=== PATIENT | female | born 1985 ===

== ENCOUNTER 2017-01-06 09:51 | Observation (INO) | payer MEDICAID, OTHER ==
[2017-01-06 12:49] VITALS: BP 101/72; PULSE 99; TEMP 97; O2SAT 100; BMI 30.8
--- NOTE | 2017-01-06 13:14 | RAD ---
HISTORY: Medical clearance COMPARISON: Images from chest PA and lateral x-ray performed 11/03/11 TECHNIQUE: Chest, one view. FINDINGS: Examination limited by habitus. LUNGS: No focal consolidation. Please note that chest x-ray has limited sensitivity for the detection of pulmonary masses. PLEURA: No significant pleural effusion identified. No definite pneumothorax . CARDIOVASCULAR: The cardiomediastinal silhouette appears within normal limits of size. OSSEOUS STRUCTURES: No acute osseous abnormality identified. VISUALIZED UPPER ABDOMEN: Unremarkable. OTHER FINDINGS: None. IMPRESSION: No focal consolidation, significant pleural effusion, or definite pneumothorax identified.
[2017-01-06 13:20] LABS: BASO % 0.5 % (0.0-2.0); EOS # 0.1 K/uL (0.0-0.7); HEMOGLOBIN 13.6 g/dL (12.0-16.0); LYMPH # 1.4 K/uL (1.0-4.3); LYMPH % 24.2 % (20.0-40.0); MEAN CELL VOLUME 94.6 fl (81.0-99.0); MEAN CORPUSCULAR HEMOGLOBIN 31.8 pg (27.0-31.0); MEAN CORPUSCULAR HGB CONC 33.6 g/dL (33.0-37.0); MEAN PLATELET VOLUME 7.7 fl (7.2-11.7); MONO # 0.4 K/uL (0.0-0.8); MONO % 6.9 % (0.0-10.0); NEUT % 67.4 % (50.0-75.0); NRBC % 0.1 % (0.0-0.0); RBC 4.27 Mil/uL (3.80-5.20); RED CELL DISTRIBUTION WIDTH 13.2 % (11.5-14.5); WHITE BLOOD COUNT 5.9 K/uL (4.8-10.8)
[2017-01-06 13:51] LABS: ALB/GLOB RATIO 1.1 (1.0-2.1); ALBUMIN 4.1 g/dL (3.5-5.0); ALT/SGPT 30 U/L (9-52); AST/SGOT 22 U/L (14-36); BLOOD UREA NITROGEN 12 mg/dl (7-17); CALCIUM 9.5 mg/dL (8.4-10.2); GFR AFRICAN-AMERICAN > 60; GFR NON-AFRICAN AMERICAN > 60
--- NOTE | 2017-01-06 14:18 | ED PDOC ---
HPI: Psych/Substance Abuse Time Seen by Provider: 01/06/17 10:04 Chief Complaint (Nursing): Psychiatric Evaluation Chief Complaint (Provider): Psych evaluation History Per: Patient, EMS History/Exam Limitations: no limitations Additional Complaint(s): The patient is a 31yo female, PMHx of self harm, anxiety, bipolar disorder, depression, is brought to the ED for evaluation status post a "manic episode" and reported by EMS. Patient denies any medical complaints. Past Medical History Vital Signs: Last Vital Signs Temp 97 F L 01/06/17 09:54 Pulse 99 H 01/06/17 09:54 Resp BP 101/72 01/06/17 09:54 Pulse Ox 100 01/06/17 09:54 - Medical History PMH: Anxiety, Bipolar Disorder, Depression Denies: Diabetes, Hepatitis, HIV, HTN, Chronic Kidney Disease, Seizures, Sexually Transmitted Disease - Family History Family History: States: Unknown Family Hx - Immunization History Hx Tetanus Toxoid Vaccination: No Hx Influenza Vaccination: No Hx Pneumococcal Vaccination: No - Home Medications Home Medications: Ambulatory Orders Medication Instructions Recorded Unobtainable 01/06/17 - Allergies Allergies/Adverse Reactions: Allergies Allergy/AdvReac Type Severity Reaction Status Date / Time pineapple Allergy ITCHING Verified 01/06/17 12:42 Review of Systems ROS Statement: Except As Marked, All Systems Reviewed And Found Negative Psych: Positive for: Other ("manic episode") Physical Exam - Reviewed Nursing Documentation Reviewed: Yes Vital Signs Reviewed: Yes - Physical Exam Appears: Positive for: Well, Non-toxic, No Acute Distress Head Exam: Positive for: ATRAUMATIC, NORMAL INSPECTION, NORMOCEPHALIC Skin: Positive for: Normal Color, Warm, DRY Eye Exam: Positive for: EOMI, Normal appearance, PERRL Neck: Positive for: Normal, Supple Cardiovascular/Chest: Positive for: Regular Rate, Rhythm Respiratory: Positive for: Normal Breath Sounds. Negative for: Respiratory Distress Neurologic/Psych: Positive for: Alert, Oriented - Laboratory Results Result Diagrams: 01/06/17 13:10 01/06/17 13:10 - ECG Interpretation Of ECG: NSR @ 62, no ST-T changes. O2 Sat by Pulse Oximetry: 100 (RA) Pulse Ox Interpretation: Normal - Radiology X-Ray: Read By Radiologist (No focal consolidation, significant pleural effusion , or definite pneumothorax identified.) Medical Decision Making Medical Decision Making: Time: 1200 Impression: Psychiatric evaluation Plan: -- Physical exam -- Crisis evaluation -- ED Observation Reassess Time: 1632 --Patient is medically cleared. --Awaiting [facility] [place]. Patient placed in OBS until screening is available. Scribe Attestation: Documented by Iza Rivera acting as a scribe for Delia Strickland MD. Provider Attestation: All medical record entries made by the Scribe were at my direction and personally dictated by me. I have reviewed the chart and agree that the record accurately reflects my personal performance of the history, physical exam, medical decision making, and the department course for this patient. I have also personally directed, reviewed, and agree with the discharge instructions and disposition. ED OBSERVATION Date of observation admission: 01/06/17 Time of observation admission: 12:00 - Progress Note Progress Note: 01/06/17 14:18 Patient in room, stable vitals. Disposition - Clinical Impression Clinical Impression: Bipolar disorder - Patient ED Disposition Is Patient to be Admitted: Transfer of Care - Disposition Disposition Time: 19:00 Condition: STABLE Patient Signed Over To: Krishna Sullivan Handoff Comments: Pending [facility] screening.
[2017-01-06 15:47] LABS: SQUAMOUS EPITHIAL 8 /hpf (0-5); URINE BACTERIA RARE (<OCC); URINE BILIRUBIN NEGATIVE (NEGATIVE); URINE BLOOD NEGATIVE (NEGATIVE); URINE CLARITY SLIGHTY-CLOUDY (Clear); URINE COLOR YELLOW (YELLOW); URINE GLUCOSE (UA) NEG (Normal); URINE LEUKOCYTE ESTERASE TRACE Leu/uL (Negative); URINE NITRATE NEGATIVE (NEGATIVE); URINE PROTEIN NEGATIVE (NEGATIVE); URINE UROBILINOGEN 0.2-1.0 mg/dL (0.2-1.0)
[2017-01-06 15:56] LABS: BARBITURATES, UR NEGATIVE (NEGATIVE); BENZODIAZEPINES, UR NEGATIVE (NEGATIVE); OPIATES, UR NEGATIVE (NEGATIVE)
[2017-01-06 16:16] LABS: PHENCYCLIDINE, UR POSITIVE (NEGATIVE)
--- NOTE | 2017-01-06 19:26 | ED PDOC ---
- Laboratory Results Result Diagrams: 01/06/17 13:10 01/06/17 13:10 - ECG O2 Sat by Pulse Oximetry: 100 (RA) Pulse Ox Interpretation: Normal Medical Decision Making Medical Decision Making: Time: 19:00 --Patient was signed out to provider by Dr. Delia Strickland. Pending [facility] screening. Time: 21:30 --Vitals are stable and patient is resting comfortably. Time: 22:25 Upon [facility] screener evaluation, patient is found medically stable to be discharged home and requires no further treatment in the ED at this time. Counseling was provided and all questions were answered regarding diagnosis. There is agreement to discharge plan. Return if symptoms persist or worsen. Clinical Impression: Bipolar disorder Scribe Attestation: Documented by Pati Delong, acting as a scribe for Krishna Sullivan MD. Provider Scribe Attestation: All medical record entries made by the Scribe were at my direction and personally dictated by me. I have reviewed the chart and agree that the record accurately reflects my personal performance of the history, physical exam, medical decision making, and the department course for this patient. I have also personally directed, reviewed, and agree with the discharge instructions and disposition. Disposition Doctor Will See Patient In The: Office Counseled Patient/Family Regarding: Diagnosis - Clinical Impression Clinical Impression: Bipolar disorder - POA Present On Arrival: None - Disposition Disposition: Routine/Home Disposition Time: 22:25 Condition: STABLE
--- NOTE | 2017-01-07 08:45 | CARD ---
APPROVED REPORT EKG Measurement Heart [id number] <Conclusion> Normal sinus rhythm Normal ECG
== END 2017-01-06 22:39 | disposition home or self-care (01) ==
LOC: H.ER 09:51 → H.EROBSV 13:25
PROVIDERS: ADMIT Emergency Medicine; ATTEND Emergency Medicine
DX: F31.9 Bipolar disorder, unspecified (principal)

== ENCOUNTER 2017-04-25 15:55 | Emergency (ER) | payer MEDICAID, OTHER ==
[2017-04-25 15:55] VITALS: BMI 30.8
[2017-04-25 16:03] VITALS: BP 144/96; PULSE 90; RESP 20; TEMP 98.6; O2SAT 98
[2017-04-25] MEDS ORDERED: Lidocaine 1% Inj (20ml) IJ ONE (16:22)
--- NOTE | 2017-04-25 16:29 | ED PDOC ---
HPI: General Adult Time Seen by Provider: 04/25/17 16:05 Chief Complaint (Nursing): Abnormal Skin Integrity History Per: Patient Additional Complaint(s): Pt. states for the past week she's had pain and swelling to the back of the L head. Pt. was seen by Dr. Thomas 2 days ago and started on Augmentin without any relief. She was seen by Dr. Thomas again today and was instructed to come to ED for I&D of abscess. Denies fever, head injury, N/V, hx of DM. Past Medical History Reviewed: Historical Data, Nursing Documentation, Vital Signs Vital Signs: Last Vital Signs Temp 98.6 F 04/25/17 16:00 Pulse 90 04/25/17 16:00 Resp 20 04/25/17 16:00 BP 144/96 H 04/25/17 16:00 Pulse Ox 98 04/25/17 16:30 - Medical History PMH: Anxiety, Bipolar Disorder, Depression Denies: Diabetes, Hepatitis, HIV, HTN, Chronic Kidney Disease, Seizures, Sexually Transmitted Disease - Family History Family History: States: No Known Family Hx - Immunization History Hx Tetanus Toxoid Vaccination: No Hx Influenza Vaccination: No Hx Pneumococcal Vaccination: No - Home Medications Home Medications: Ambulatory Orders Medication Instructions Recorded Cephalexin [cephalexin] 500 mg PO Q6 #28 cap 04/25/17 Sulfamethoxazole/Trimethoprim 2 tab PO BID #28 tab 04/25/17 [Bactrim DS 800 mg-160 mg] - Allergies Allergies/Adverse Reactions: Allergies Allergy/AdvReac Type Severity Reaction Status Date / Time pineapple Allergy ITCHING Verified 01/06/17 12:42 Review of Systems ROS Statement: Except As Marked, All Systems Reviewed And Found Negative Physical Exam - Physical Exam Appears: Positive for: Well, Non-toxic, No Acute Distress Head Exam: Positive for: ATRAUMATIC. Negative for: NORMAL INSPECTION (nickel sized erythematous, fluctuance, erythematous mass on L occipital scalp without surrounding erythema), NORMOCEPHALIC Neurologic/Psych: Positive for: Alert, Oriented. Negative for: Aphasia, Facial Droop - ECG O2 Sat by Pulse Oximetry: 98 - Progress ED Course And Treament: Case d/w Dr. Thomas who agrees with care and requests that pt. return to ED for wound check/packing removal. Procedures - Time-Out Type of Procedure: Incision and drainage of abscess Site of Procedure: L occipital scalp Correct Patient (with visual ID + MR# on ID Band): Yes Correct Procedure: Yes PA/Tech: Ousmane - Incision and Drainage Blade Size: 11 I & D Procedure: betadine prep, sterile drapes applied, sterile dressing applied , gauze wick placed Disposition - Clinical Impression Clinical Impression: Abscess - Patient ED Disposition Is Patient to be Admitted: No - Disposition Referrals: [facility]ana Dawkins [Outside] Disposition: Routine/Home Disposition Time: 17:06 Condition: STABLE Additional Instructions: Return to ED in 48 hours for wound check/packing removal. STOP taking Augmentin. Start Keflex and Bactrim DS today . Prescriptions: Cephalexin [cephalexin] 500 mg PO Q6 #28 cap Sulfamethoxazole/Trimethoprim [Bactrim DS 800 mg-160 mg] 2 tab PO BID #28 tab Instructions: Abscess (ED) Forms: [employer] (Citizen Of [place])
[2017-04-25] MEDS ORDERED: Lidocaine 1% Inj (20ml) ONE (16:35)
[2017-04-25] MEDS ORDERED: Povidone Iodine Oint 10% Foilpak UD ONE (16:36)
== END 2017-04-25 17:15 | disposition home or self-care (01) ==
LOC: H.ER 15:55
DX: L02.811 Cutaneous abscess of head [any part, except face] (principal); F31.9 Bipolar disorder, unspecified; F41.9 Anxiety disorder, unspecified

== ENCOUNTER 2017-04-28 12:46 | Emergency (ER) | payer MEDICAID, OTHER ==
[2017-04-28 12:46] VITALS: BMI 30.8
[2017-04-28 12:54] VITALS: BP 145/95; PULSE 85; RESP 16; TEMP 98; O2SAT 100
--- NOTE | 2017-04-28 13:46 | ED PDOC ---
HPI: Wound Care - HPI Time Seen by Provider: 04/28/17 13:33 Chief Complaint (Nursing): Wound Check Chief Complaint (Provider): Lower left scalp abscess History Per: Patient Exam Limitations: no limitations Onset/Duration Of Symptoms: Days (x4) Current Symptoms Are (Timing): Still Present Additional History Per: Patient Additional Complaint(s): Adrienne Velasco is a 32 year old female with no past medical history who presents to the ED due to an abscess on her left scalp present 4x days. Patient has been on antibiotics for 4 days by pmd. Seen in the ED 2 days ago and received an incision and drainage. Tetanus is up to date. PMD: Bal Thomas MD Past Medical History Reviewed: Historical Data, Nursing Documentation, Vital Signs Vital Signs: Last Vital Signs Temp 98.0 F 04/28/17 12:53 Pulse 85 04/28/17 12:53 Resp 16 04/28/17 12:53 BP 145/95 H 04/28/17 12:53 Pulse Ox 100 04/28/17 12:53 - Medical History PMH: Anxiety, Bipolar Disorder, Depression Denies: Diabetes, Hepatitis, HIV, HTN, Chronic Kidney Disease, Seizures, Sexually Transmitted Disease - Family History Family History: States: Unknown Family Hx - Social History Current smoker - smoking cessation education provided: Yes (>10 cigarettes per day) Alcohol: None Drugs: Other (PCP) - Immunization History Hx Tetanus Toxoid Vaccination: No Hx Influenza Vaccination: No Hx Pneumococcal Vaccination: No - Home Medications Home Medications: Ambulatory Orders Medication Instructions Recorded Cephalexin [cephalexin] 500 mg PO Q6 #28 cap 04/25/17 Sulfamethoxazole/Trimethoprim 2 tab PO BID #28 tab 04/25/17 [Bactrim DS 800 mg-160 mg] - Allergies Allergies/Adverse Reactions: Allergies Allergy/AdvReac Type Severity Reaction Status Date / Time pineapple Allergy ITCHING Verified 04/28/17 12:50 Review of Systems ROS Statement: Except As Marked, All Systems Reviewed And Found Negative Skin: Positive for: Lesions (Left scalp abscess) Physical Exam - Reviewed Nursing Documentation Reviewed: Yes Vital Signs Reviewed: Yes - Physical Exam Appears: Positive for: Well, Non-toxic, No Acute Distress Head Exam: Positive for: ATRAUMATIC, NORMAL INSPECTION, NORMOCEPHALIC Skin: Positive for: Normal Color (Packed wound noted on lower left posterior scalp behind ear. No signs of erythema.), Warm, Dry Eye Exam: Positive for: EOMI, Normal appearance, PERRL Neck: Positive for: Normal, Painless ROM, Supple Cardiovascular/Chest: Positive for: Regular Rate, Rhythm. Negative for: Murmur Respiratory: Positive for: Normal Breath Sounds. Negative for: Respiratory Distress Gastrointestinal/Abdominal: Positive for: Normal Exam, Bowel Sounds, Soft. Negative for: Tenderness Back: Positive for: Normal Inspection. Negative for: L CVA Tenderness, R CVA Tenderness, Vertebral Tenderness Extremity: Positive for: Normal ROM. Negative for: Pedal Edema, Deformity Neurologic/Psych: Positive for: Alert, Oriented. Negative for: Motor/Sensory Deficits - ECG O2 Sat by Pulse Oximetry: 100 (RA) Pulse Ox Interpretation: Normal Medical Decision Making Medical Decision Making: Time: 13:33 Initial Impression: Lower left posterior scalp abscess behind ear Plan: --Consent obtained prior to procedure. Wound packing removed and wound dressed. --Reevaluation Time: 13:51 --Upon provider evaluation patient is medically stable, and requires no further treatment in the ED at this time. Counseling was provided and all questions were answered regarding diagnosis and need for followup with PMD. There is agreement to discharge plan. Return if symptoms persist or worsen. Scribe Attestation: Documented by Alvarado Rush, acting as a scribe for Adrienne Carter PA-C Provider Scribe Attestation: All medical record entries made by the Scribe were at my direction and personally dictated by me. I have reviewed the chart and agree that the record accurately reflects my personal performance of the history, physical exam, medical decision making, and the department course for this patient. I have also personally directed, reviewed, and agree with the discharge instructions and disposition. Disposition - Clinical Impression Clinical Impression: Encounter for wound re-check - Patient ED Disposition Is Patient to be Admitted: No - Disposition Disposition: Routine/Home Disposition Time: 13:51 Condition: FAIR Instructions: Abscess Follow-up (ED) Forms: [employer] ([place]), [facility] School/Work Excuse
== END 2017-04-28 14:03 | disposition home or self-care (01) ==
LOC: H.ER 12:46
DX: Z48.00 Encounter for change or removal of nonsurgical wound dressing (principal); F41.9 Anxiety disorder, unspecified; F31.9 Bipolar disorder, unspecified

== ENCOUNTER 2017-05-01 08:01 | Emergency (ER) | payer MEDICAID, OTHER ==
[2017-05-01 08:01] VITALS: BMI 30.8
[2017-05-01 08:09] VITALS: BP 134/85; TEMP 96.6
[2017-05-01 08:34] VITALS: PULSE 90; RESP 18; O2SAT 98
--- NOTE | 2017-05-01 08:53 | ED PDOC ---
HPI: General Adult Time Seen by Provider: 05/01/17 08:26 Chief Complaint (Nursing): Abnormal Skin Integrity Chief Complaint (Provider): Abnormal skin integrity History Per: Patient History/Exam Limitations: no limitations Onset/Duration Of Symptoms: Days (x2) Recently: Treated By A Physician Additional Complaint(s): Adrienne Velasco is a 32 year old female, with a past medical history of anxiety and depression, who presents to the emergency department for wound check s/p I& D of abscess on scalp onset 2 days ago. Patient denies any fever, or chills. No further medical complaints. PMD: None provided. Past Medical History Reviewed: Historical Data, Nursing Documentation, Vital Signs Vital Signs: Last Vital Signs Temp 96.6 F L 05/01/17 08:32 Pulse 90 05/01/17 08:32 Resp 18 05/01/17 08:32 BP 134/85 05/01/17 08:08 Pulse Ox 98 05/01/17 09:00 - Medical History PMH: Anxiety, Bipolar Disorder, Depression Denies: Diabetes, Hepatitis, HIV, HTN, Chronic Kidney Disease, Seizures, Sexually Transmitted Disease - Family History Family History: States: Unknown Family Hx - Social History Current smoker - smoking cessation education provided: Yes (Heavy smoker >10 cigarettes daily. 10 years smoking) Alcohol: None Drugs: Other (PCP) - Immunization History Hx Tetanus Toxoid Vaccination: No Hx Influenza Vaccination: No Hx Pneumococcal Vaccination: No - Home Medications Home Medications: Ambulatory Orders Medication Instructions Recorded Cephalexin [cephalexin] 500 mg PO Q6 #28 cap 04/25/17 Sulfamethoxazole/Trimethoprim 2 tab PO BID #28 tab 04/25/17 [Bactrim DS 800 mg-160 mg] - Allergies Allergies/Adverse Reactions: Allergies Allergy/AdvReac Type Severity Reaction Status Date / Time pineapple Allergy ITCHING Verified 04/28/17 12:50 Review of Systems ROS Statement: Except As Marked, All Systems Reviewed And Found Negative Constitutional: Negative for: Fever, Chills Skin: Positive for: Other (abscess wound on scalp) Physical Exam - Reviewed Nursing Documentation Reviewed: Yes Vital Signs Reviewed: Yes - Physical Exam Appears: Positive for: Well, Non-toxic, No Acute Distress Head Exam: Positive for: ATRAUMATIC, NORMAL INSPECTION (Drainage wound clean and dry. Nontender), NORMOCEPHALIC Skin: Positive for: Normal Color, Warm, Dry Eye Exam: Positive for: EOMI, Normal appearance, PERRL Neck: Positive for: Normal, Painless ROM, Supple Cardiovascular/Chest: Positive for: Regular Rate, Rhythm. Negative for: Murmur Respiratory: Positive for: Normal Breath Sounds. Negative for: Respiratory Distress Gastrointestinal/Abdominal: Positive for: Normal Exam, Bowel Sounds, Soft. Negative for: Tenderness, Guarding, Rebound Back: Positive for: Normal Inspection. Negative for: L CVA Tenderness, R CVA Tenderness, Vertebral Tenderness Extremity: Positive for: Normal ROM Neurologic/Psych: Positive for: Alert, Oriented - ECG O2 Sat by Pulse Oximetry: 98 (RA) Pulse Ox Interpretation: Normal Medical Decision Making Medical Decision Making: Initial Plan: -Drainage wound clean and dry. Nontender Scribe Attestation: Documented by Jovan Stone, acting as a scribe for Loyd Estrada MD Provider Scribe Attestation: All medical record entries made by the Scribe were at my direction and personally dictated by me. I have reviewed the chart and agree that the record accurately reflects my personal performance of the history, physical exam, medical decision making, and the department course for this patient. I have also personally directed, reviewed, and agree with the discharge instructions and disposition. Disposition - Clinical Impression Clinical Impression: Wound check, abscess - Patient ED Disposition Is Patient to be Admitted: No - Disposition Referrals: [facility] [Outside] Disposition: Routine/Home Disposition Time: 09:00 Condition: FAIR Instructions: Abscess (ED) Forms: [employer] (K[place]akh)
== END 2017-05-01 09:05 | disposition home or self-care (01) ==
LOC: H.ER 08:01
DX: L02.811 Cutaneous abscess of head [any part, except face] (principal); F31.9 Bipolar disorder, unspecified; F41.9 Anxiety disorder, unspecified

== ENCOUNTER 2017-05-02 09:42 | Emergency (ER) | payer MEDICAID, OTHER ==
[2017-05-02 09:58] VITALS: BP 109/69; PULSE 89; RESP 20; TEMP 98.3; O2SAT 99
[2017-05-02 09:59] VITALS: BMI 31.9
--- NOTE | 2017-05-02 11:17 | ED PDOC ---
HPI: General Adult Time Seen by Provider: 05/02/17 10:15 Chief Complaint (Nursing): Abnormal Skin Integrity History Per: Patient Additional Complaint(s): Pt. states for the past 2 weeks she's been having intermittent painful rashes on her scalp. States that last week she had an abscess drained from her scalp here which is now healed but 2-3 days ago 2 new pimple like masses have come up prompting ED visit. Denies fever, head injury. Of note, pt has completed her course of Keflex and Bactrim. Past Medical History Reviewed: Historical Data, Nursing Documentation, Vital Signs Vital Signs: Last Vital Signs Temp 98.3 F 05/02/17 09:58 Pulse 89 05/02/17 09:58 Resp 20 05/02/17 09:58 BP 109/69 05/02/17 09:58 Pulse Ox 99 05/02/17 09:58 - Medical History PMH: Anxiety, Bipolar Disorder, Depression Denies: Diabetes, Hepatitis, HIV, HTN, Chronic Kidney Disease, Seizures, Sexually Transmitted Disease - Family History Family History: States: No Known Family Hx - Immunization History Hx Tetanus Toxoid Vaccination: No Hx Influenza Vaccination: No Hx Pneumococcal Vaccination: No - Home Medications Home Medications: Ambulatory Orders Medication Instructions Recorded Cephalexin [cephalexin] 500 mg PO Q6 #28 cap 04/25/17 Sulfamethoxazole/Trimethoprim 2 tab PO BID #28 tab 04/25/17 [Bactrim DS 800 mg-160 mg] Mupirocin 2% Ointment [Bactroban 1 applic TOP TID #1 tube 05/02/17 Ointment] - Allergies Allergies/Adverse Reactions: Allergies Allergy/AdvReac Type Severity Reaction Status Date / Time pineapple Allergy ITCHING Verified 04/28/17 12:50 Review of Systems ROS Statement: Except As Marked, All Systems Reviewed And Found Negative Physical Exam - Physical Exam Appears: Positive for: Well, Non-toxic, No Acute Distress Head Exam: Positive for: ATRAUMATIC, NORMOCEPHALIC. Negative for: NORMAL INSPECTION (1 pustule on L occipital scalp and 1 pustule on mid occipital scalp without vesicles or surrounding erythema) Eye Exam: Positive for: Normal appearance Neurologic/Psych: Positive for: Alert, Oriented - ECG O2 Sat by Pulse Oximetry: 99 Disposition - Clinical Impression Clinical Impression: Folliculitis - Patient ED Disposition Is Patient to be Admitted: No - Disposition Referrals: [facility] [Outside] Bal Thomas MD [Staff Provider] - Disposition Time: 10:30 Condition: STABLE Prescriptions: Mupirocin 2% Ointment [Bactroban Ointment] 1 applic TOP TID #1 tube Instructions: Folliculitis (ED) Forms: [employer] ([place])
== END 2017-05-02 11:17 | disposition home or self-care (01) ==
LOC: H.ER 09:42
DX: L73.9 Follicular disorder, unspecified (principal); F41.9 Anxiety disorder, unspecified; F31.9 Bipolar disorder, unspecified

== ENCOUNTER 2017-08-15 06:17 | Emergency (ER) | payer MEDICARE, OTHER ==
[2017-08-15 06:18] VITALS: BMI 31.9
[2017-08-15 06:45] VITALS: BP 130/90; PULSE 95; RESP 17; TEMP 98.7; O2SAT 97
== END 2017-08-15 07:00 | disposition left against medical advice (07) ==
LOC: H.ER 06:17
DX: Z02.89 Encounter for other administrative examinations (principal)

== ENCOUNTER 2017-08-17 03:56 | Emergency (ER) | payer MEDICARE, OTHER ==
[2017-08-17 03:56] VITALS: BMI 31.9
[2017-08-17 04:18] VITALS: O2SAT 96
[2017-08-17] MEDS ORDERED: Sodium Chloride 0.9% 1,000 ML IV STA (04:32)
[2017-08-17] MEDS ORDERED: DiphenhydrAMINE 50 mg/ml Inj IV STA (04:32)
[2017-08-17 05:00] LABS: BASO # 0.1 K/uL (0.0-0.2); BASO % 0.8 % (0.0-2.0); EOS # 0.1 K/uL (0.0-0.7); EOS % 0.4 % (0.0-4.0); HEMOGLOBIN 13.7 g/dL (12.0-16.0); MEAN CELL VOLUME 95.8 fl (81.0-99.0); MEAN CORPUSCULAR HGB CONC 33.4 g/dL (33.0-37.0); MEAN PLATELET VOLUME 7.9 fl (7.2-11.7); MONO # 0.8 K/uL (0.0-0.8); MONO % 6.4 % (0.0-10.0); NEUT # 9.8 K/uL (1.8-7.0); NEUT % 76.4 % (50.0-75.0); NRBC % 0.1 % (0.0-0.0); RBC 4.28 Mil/uL (3.80-5.20); RED CELL DISTRIBUTION WIDTH 13.3 % (11.5-14.5); WHITE BLOOD COUNT 12.8 K/uL (4.8-10.8)
[2017-08-17 05:12] LABS: ALB/GLOB RATIO 1.1 (1.0-2.1); ALBUMIN 4.3 g/dL (3.5-5.0); ALT/SGPT 32 U/L (9-52); AST/SGOT 29 U/L (14-36); BLOOD UREA NITROGEN 18 mg/dl (7-17); CALCIUM 10.2 mg/dL (8.4-10.2); GFR AFRICAN-AMERICAN > 60; GFR NON-AFRICAN AMERICAN > 60
[2017-08-17 05:33] LABS: SQUAMOUS EPITHIAL 2 /hpf (0-5); URINE BILIRUBIN NEGATIVE (NEGATIVE); URINE BLOOD SMALL (NEGATIVE); URINE CLARITY SLIGHTY-CLOUDY (Clear); URINE COLOR YELLOW (YELLOW); URINE GLUCOSE (UA) NEG (Normal); URINE LEUKOCYTE ESTERASE NEG Leu/uL (Negative); URINE NITRATE NEGATIVE (NEGATIVE); URINE PROTEIN NEGATIVE (NEGATIVE); URINE UROBILINOGEN 0.2-1.0 mg/dL (0.2-1.0)
--- NOTE | 2017-08-17 06:04 | ED PDOC ---
HPI: Psych/Substance Abuse Time Seen by Provider: 08/17/17 04:04 Chief Complaint (Nursing): Medical Clearance Chief Complaint (Provider): Possible Substance Abuse History Per: Patient History/Exam Limitations: clinical condition Onset/Duration Of Symptoms: Days (1x) Additional Complaint(s): Adrienne Velasco, a 32 y/o female with past medical history of bipolar disorder was brought into the ED by EMS after her father reports of possible substance abuse. Patient reports she took no other drugs except Celexa and felt sluggish, started drooling and had slurred speech. Also has hiccups and her previous chart presents that patient was discharged from [facility], [place] psychiatry department with [place], Hydroxyzine, and Desyrel. She does not take the other medication except Desyrel infrequently. Of note: Patient visited the ED two days ago, with similar complaint but left without any evaluation. PMD: Provider TBD Past Medical History Reviewed: Historical Data, Nursing Documentation, Vital Signs Vital Signs: Last Vital Signs Temp 97.9 F 08/17/17 04:11 Pulse 102 H 08/17/17 04:11 Resp 18 08/17/17 04:11 BP 118/84 08/17/17 04:11 Pulse Ox 96 08/17/17 04:11 - Medical History PMH: Anxiety, Bipolar Disorder, Depression Denies: Diabetes, Hepatitis, HIV, HTN, Chronic Kidney Disease, Seizures, Sexually Transmitted Disease - Surgical History Surgical History: No Surg Hx - Family History Family History: States: Unknown Family Hx - Immunization History Hx Tetanus Toxoid Vaccination: No Hx Influenza Vaccination: No Hx Pneumococcal Vaccination: No - Home Medications Home Medications: Ambulatory Orders Medication Instructions Recorded Benztropine [Cogentin] 1 mg PO BID #60 tab 08/07/17 Haloperidol [Haldol] 10 mg PO BID #60 tab 08/07/17 Hydroxyzine HCl 25 mg PO BID 30 Days #60 tablet 08/07/17 South Run Carbonate [[place] Run 600 mg PO DAILY #30 cap 08/07/17 Carbonate 300MG] South Run Carbonate [[place] 900 mg PO HS #30 cap 08/07/17 Carbonate 300MG] traZODone [Desyrel] 100 mg PO HS #30 tab 08/07/17 - Allergies Allergies/Adverse Reactions: Allergies Allergy/AdvReac Type Severity Reaction Status Date / Time pineapple Allergy ITCHING Verified 08/02/17 02:29 Review of Systems ROS Statement: Except As Marked, All Systems Reviewed And Found Negative Constitutional: Positive for: Other (hiccups) Neurological: Positive for: Change in Speech, Other (droooling) Physical Exam - Reviewed Nursing Documentation Reviewed: Yes Vital Signs Reviewed: Yes - Physical Exam Appears: Positive for: No Acute Distress Head Exam: Positive for: ATRAUMATIC, NORMAL INSPECTION, NORMOCEPHALIC Skin: Positive for: Normal Color, Warm, Dry Eye Exam: Positive for: EOMI, Normal appearance, PERRL ENT: Positive for: Normal ENT Inspection Neck: Positive for: Normal, Painless ROM, Supple. Negative for: Decreased ROM Cardiovascular/Chest: Positive for: Regular Rate, Rhythm. Negative for: Murmur Respiratory: Positive for: Normal Breath Sounds. Negative for: Accessory Muscle Use, Wheezing, Respiratory Distress Gastrointestinal/Abdominal: Positive for: Normal Exam, Bowel Sounds, Soft. Negative for: Tenderness, Guarding Back: Positive for: Normal Inspection. Negative for: L CVA Tenderness, R CVA Tenderness Extremity: Positive for: Normal ROM. Negative for: Tenderness, Pedal Edema, Deformity Neurologic/Psych: Positive for: Alert, Oriented (x3), Gait (unsteady), Other ( slurred speech; drooling ) - Laboratory Results Result Diagrams: 08/17/17 04:50 08/17/17 04:50 - ECG O2 Sat by Pulse Oximetry: 96 (RA) Pulse Ox Interpretation: Normal Medical Decision Making Medical Decision Making: Time: 04:25 Initial Impression: 32 y/o female with dystonic versus possible extrapyramidal syndrome Initial Plan: -- EKG --Alcohol serum --CMP --Drug screen --CBC --Benadryl 50mg --Normal Saline 1000 mls/hr --Pepcid 20mg --Urinalysis --Reevaluation Patient to be signed out to Dr. Estrada pending labs and reevaluation. Documented by Shreya Sewell acting as a scribe for Krishna Sullivan MD. All medical record entries made by the Scribe were at my direction and personally dictated by me. I have reviewed the chart and agree that the record accurately reflects my personal performance of the history, physical exam, medical decision making, and the department course for this patient. I have also personally directed, reviewed, and agree with the discharge instructions and disposition. Disposition - Clinical Impression Clinical Impression: PCP (phencyclidine) abuse - Disposition Referrals: [facility] [Outside] Disposition: Transfer of Care Disposition Time: 07:00 Condition: FAIR Instructions: Drug Abuse and Drug Addiction (DC) Forms: [employer] (Nicaraguan) Patient Signed Over To: Loyd Estrada
[2017-08-17 06:23] LABS: BARBITURATES, UR NEGATIVE (NEGATIVE); BENZODIAZEPINES, UR NEGATIVE (NEGATIVE); OPIATES, UR NEGATIVE (NEGATIVE); PHENCYCLIDINE, UR POSITIVE (NEGATIVE)
--- NOTE | 2017-08-17 09:32 | ED PDOC ---
- Laboratory Results Result Diagrams: 08/17/17 04:50 08/17/17 04:50 - ECG O2 Sat by Pulse Oximetry: 96 (RA) - Progress Re-evaluation Time: 09:30 Condition: Improved (Awake alert no focal neuro deficits. denies SI/HI) Disposition - Clinical Impression Clinical Impression: PCP (phencyclidine) abuse - POA Present On Arrival: None - Disposition Referrals: [facility] [Outside] Disposition: Routine/Home Disposition Time: 09:31 Condition: FAIR Instructions: Drug Abuse and Drug Addiction (DC) Forms: [email or web address] (Haitian)
[2017-08-17 10:14] VITALS: BP 115/80; PULSE 75; RESP 16; TEMP 98.1
--- NOTE | 2017-08-17 23:10 | CARD ---
APPROVED REPORT EKG Measurement Heart [id number] <Conclusion> Normal sinus rhythm Nonspecific T wave abnormality Abnormal ECG
== END 2017-08-17 10:47 | disposition home or self-care (01) ==
LOC: H.ER 03:56
DX: F16.20 Hallucinogen dependence, uncomplicated (principal); F31.9 Bipolar disorder, unspecified; F41.9 Anxiety disorder, unspecified
CPT/HCPCS: 80053; 81003; 82948; 85025; 93005; 96374; 96375; 99284; G0480; J1200; J7040

== ENCOUNTER 2017-08-18 17:43 | Inpatient (IN) | payer MEDICARE, MEDICAID ==
[2017-08-18 17:43] VITALS: BMI 31.9
[2017-08-18] MEDS ORDERED: Sodium Chloride 0.9% 1,000 ML IV STA (18:11)
[2017-08-18] MEDS ORDERED: DiphenhydrAMINE 50 mg/ml Inj IV STA (18:11)
--- NOTE | 2017-08-18 18:16 | ED PDOC ---
HPI: Altered Mental Status Time Seen by Provider: 08/18/17 17:56 Chief Complaint (Nursing): Weakness/Neurological Deficit Chief Complaint (Provider): Weakness History Per: Patient, EMS, Family History/Exam Limitations: Clinical Condition Onset/Duration Of Symptoms: Days (today) Additional Complaint(s): Pt. was here yesterday and day before. Also multiple times in the past. Pt. was given tx and dc yesterday and today woke up with tightness in arms and hands. Weakness all over. Decreased verbal communication. Limited H and P as family not at bedside but information gotten from EMS who spoke with them. Pt. communicating limited and not much verbal. Past Medical History Reviewed: Historical Data, Nursing Documentation, Vital Signs Vital Signs: Last Vital Signs Temp 98.5 F 08/18/17 17:44 Pulse 92 H 08/18/17 17:44 Resp 18 08/18/17 17:44 BP 119/80 08/18/17 17:44 Pulse Ox 99 08/18/17 17:44 - Medical History PMH: Anxiety, Bipolar Disorder, Depression Denies: Diabetes, Hepatitis, HIV, HTN, Chronic Kidney Disease, Seizures, Sexually Transmitted Disease - Family History Family History: States: Unknown Family Hx - Living Arrangements Living Arrangements: With Family - Immunization History Hx Tetanus Toxoid Vaccination: No Hx Influenza Vaccination: No Hx Pneumococcal Vaccination: No - Home Medications Home Medications: Ambulatory Orders Medication Instructions Recorded Benztropine [Cogentin] 1 mg PO BID #60 tab 08/07/17 Haloperidol [Haldol] 10 mg PO BID #60 tab 08/07/17 Hydroxyzine HCl 25 mg PO BID 30 Days #60 tablet 08/07/17 Cantril Carbonate [Cantril 600 mg PO DAILY #30 cap 08/07/17 Carbonate 300MG] Cantril Carbonate [Cantril 900 mg PO HS #30 cap 08/07/17 Carbonate 300MG] traZODone [Desyrel] 100 mg PO HS #30 tab 08/07/17 - Allergies Allergies/Adverse Reactions: Allergies Allergy/AdvReac Type Severity Reaction Status Date / Time pineapple Allergy ITCHING Verified 08/02/17 02:29 Review of Systems Review Of Systems: ROS cannot be obtained secondary to pt's inabilty to answer questions. Physical Exam - Reviewed Nursing Documentation Reviewed: Yes Vital Signs Reviewed: Yes - Physical Exam Appears: Positive for: Uncomfortable Head Exam: Positive for: ATRAUMATIC, NORMAL INSPECTION, NORMOCEPHALIC Skin: Positive for: Diaphoresis Eye Exam: Positive for: Normal appearance, EOMI, PERRL ENT: Positive for: Normal ENT Inspection. Negative for: Nasal Congestion, Pharyngeal Erythema, Tonsillar Exudate Neck: Positive for: Normal, Painless ROM, Supple Cardiovascular/Chest: Positive for: Regular Rate, Rhythm. Negative for: Edema Respiratory: Positive for: CNT, Normal Breath Sounds Gastrointestinal/Abdominal: Positive for: Normal Exam, Bowel Sounds, Soft. Negative for: Tenderness Back: Positive for: Normal Inspection. Negative for: L CVA Tenderness, R CVA Tenderness Extremity: Positive for: Tenderness, Other (hands are midly clenched and decreased ROM). Negative for: Pedal Edema Neurologic/Psych: Positive for: Alert, Other (pt. responding to commands; limited verbal response) - Laboratory Results Result Diagrams: 08/18/17 18:30 08/18/17 18:30 Interpretation Of Abn Labs: pcp pos - ECG ECG: Positive for: Interpreted By Me, Viewed By Me ECG Rhythm: Positive for: Normal QRS, Normal ST Segment, Sinus Rhythm O2 Sat by Pulse Oximetry: 99 Pulse Ox Interpretation: Normal - Radiology X-Ray: Interpreted by Me, Viewed By Me X-Ray Interpretation: No Acute Disease - CT Scan/US ct Other Rad Studies (CT/US): Read By Radiologist Other Rad Interpretation: no acute - Progress ED Course And Treament: 1820: Per records pt. was given benadryl and fluids yesterday. Positive for pcp. Pt. meds unclear. Possible antipsychotic meds. Will need to treat for side effects from them. Reviewed records and pt. does not aknowledge what she is on currently. Will give ativan along with benadryl as pt. is restless and moving around. Is threat to self and staff. Acute psychosis present and restraints will be applied. 9: Stable. Moving more freely. PCP pos. Will continue obs. Dr. Sullivan to take over care and fu. Disposition - Clinical Impression Clinical Impression: PCP (phencyclidine) abuse - Patient ED Disposition Is Patient to be Admitted: Transfer of Care - Disposition Disposition: Transfer of Care Disposition Time: 23:31 Condition: FAIR
[2017-08-18] MEDS ORDERED: DiphenhydrAMINE 50 mg/ml Inj ONE (18:32)
[2017-08-18 18:49] LABS: PARTIAL THROMBOPLASTIN TIME 27.9 Seconds (25.6-37.1); PROTHROMBIN TIME 11.3 Seconds (9.8-13.1)
[2017-08-18 18:55] LABS: BASO # 0.1 K/uL (0.0-0.2); EOS # 0.2 K/uL (0.0-0.7); EOS % 1.6 % (0.0-4.0); HEMOGLOBIN 13.5 g/dL (12.0-16.0); LYMPH # 2.2 K/uL (1.0-4.3); MEAN CELL VOLUME 95.1 fl (81.0-99.0); MEAN CORPUSCULAR HEMOGLOBIN 32.6 pg (27.0-31.0); MEAN CORPUSCULAR HGB CONC 34.3 g/dL (33.0-37.0); MEAN PLATELET VOLUME 7.7 fl (7.2-11.7); MONO # 0.7 K/uL (0.0-0.8); MONO % 6.6 % (0.0-10.0); NEUT # 6.9 K/uL (1.8-7.0); NEUT % 68.8 % (50.0-75.0); NRBC % 0.3 % (0.0-0.0); RBC 4.15 Mil/uL (3.80-5.20); RED CELL DISTRIBUTION WIDTH 13.5 % (11.5-14.5)
[2017-08-18 19:01] LABS: ALBUMIN 4.2 g/dL (3.5-5.0); ALT/SGPT 31 U/L (9-52); AST/SGOT 37 U/L (14-36); BLOOD UREA NITROGEN 15 mg/dl (7-17); CALCIUM 9.4 mg/dL (8.4-10.2); GFR AFRICAN-AMERICAN > 60; GFR NON-AFRICAN AMERICAN > 60
[2017-08-18 20:05] LABS: BARBITURATES, UR NEGATIVE (NEGATIVE); BENZODIAZEPINES, UR NEGATIVE (NEGATIVE); OPIATES, UR NEGATIVE (NEGATIVE)
[2017-08-18 20:06] LABS: PHENCYCLIDINE, UR POSITIVE (NEGATIVE)
--- NOTE | 2017-08-18 21:29 | CT ---
EXAM: CT Head Without Intravenous Contrast CLINICAL HISTORY: 32 years old, female; Signs and symptoms; Malaise or fatigue; Additional info: Altered behavior TECHNIQUE: Axial computed tomography images of the head/brain without intravenous contrast. All CT scans at this facility use one or more dose reduction techniques, viz.: automated exposure control; ma/kV adjustment per patient size (including targeted exams where dose is matched to indication; i.e. head); or iterative reconstruction technique. Coronal and sagittal reformatted images were created and reviewed. COMPARISON: No relevant prior studies available. FINDINGS: Brain: No hemorrhage. No significant white matter disease. No edema. Prominence of extra-axial space near vertex, question atrophy. Ventricles: No hydrocephalus. Cavum veli interpositi. Bones: Skull is intact. Sinuses: No acute sinusitis. Mastoid air cells: No mastoid effusion. IMPRESSION: No CT evidence of acute intracranial abnormality.
--- NOTE | 2017-08-19 00:28 | ED PDOC ---
- Laboratory Results Result Diagrams: 08/18/17 18:30 08/18/17 18:30 - ECG O2 Sat by Pulse Oximetry: 99 (RA) Pulse Ox Interpretation: Normal Medical Decision Making Medical Decision Making: Time: 00:00 --Patient transferred to or by Dr. Peters pending sobriety and crisis evaluation. Time: 2:15 --Patient will be admitted for bipolar disorder and PCP use. She is medically stable for psychiatric admission. Scribe Attestation: Documented by David Miranda, acting as a scribe for Krishna Sullivan MD Provider Scribe Attestation: All medical record entries made by the Scribe were at my direction and personally dictated by me. I have reviewed the chart and agree that the record accurately reflects my personal performance of the history, physical exam, medical decision making, and the department course for this patient. I have also personally directed, reviewed, and agree with the discharge instructions and disposition. Disposition Counseled Patient/Family Regarding: Studies Performed, Diagnosis - Clinical Impression Clinical Impression: PCP (phencyclidine) abuse - POA Present On Arrival: None - Disposition Disposition: Discharged to [facility] Disposition Time: 02:15 Condition: FAIR
[2017-08-19] MEDS ORDERED: Magnesium Hydroxide Susp 30 ml UD PO PRN (02:53)
[2017-08-19] MEDS ORDERED: DiphenhydrAMINE 50 mg/ml Inj IM PRN (02:53)
--- NOTE | 2017-08-19 04:26 | PCM.BM ---
Treatment Plan Problems - Problems identified on initial assessmt Hopelessness/Helplessness Date Initiated: 08/19/17 Time Initiated: 04:25 Assessment reference: NA Status: Active Treatment assets and liabiliti Patient Assests: adapts well, cooperative, ADL independent, physically healthy, negotiates basic needs, cognitively intact Patient Liabilities: substance abuse, other (chronic mental illness) - Milieu Protocol Maintain good personal hygiene: daily Encourage regular showers, daily Remind patient to perform daily oral care, daily Assist patient to perform ADL's Maintain personal safety: every shift Educate patient to report safety concerns to staff, every shift Monitor environment for contraband/sharps Medication safety: Monitor for expected outcome, potential side effects: every shift, Assess barriers to learning: every shift, Assess readiness for medication education: every shift
[2017-08-19 06:43] VITALS: O2SAT 99
--- NOTE | 2017-08-19 08:35 | RAD ---
HISTORY: altered behavior COMPARISON: Chest radiographs 12/27/2016. FINDINGS: LUNGS: No acute infiltrate bilaterally. Somewhat diminished inspiratory volume suggested. PLEURA: No significant pleural effusion identified, no pneumothorax apparent. CARDIOVASCULAR: Normal. OSSEOUS STRUCTURES: No significant abnormalities. VISUALIZED UPPER ABDOMEN: Normal. OTHER FINDINGS: None. IMPRESSION: Diminished inspiratory volume. No acute infiltrate, pleural effusion or pneumothorax identified. No interval cardiovascular changes.
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
--- NOTE | 2017-08-19 11:40 | PCM.PSYCH ---
Initial Psychiatric Evaluation - Initial Psychiatric Evaluation Type of Admission: Voluntary Legal Status: Capacity Chief Complaint (in patient's own words): "I am messed up." Patient's Reaction to Hospitalization: HPI: 32 yo female w/ h/o Bipolar disorder w/ psychotic features and multiple past psychiatric admissions, most recent at [facility] from 08/02/17/-08/07/17 , presents acutely decompensated in the context of non-compliance with medications and PCP use. She reports feeling acutely depressed, anxious, w/ thought blocking and psychomotor delay. She is not agreeable to restarting her most recent medications (Cogentin, Haldol, Hydroxyzine, Forman) due to feeling that he is has slowed her down psychically and mentally. She is a poor historian at this time. She reports AH and current paranoia. NO SI/HI. PPHx: Multiple past psychiatric admissions, most recent to [facility] 2 weeks ago. She has been non-compliant with medications PMHx: Denies chronic medical issues ALL: Pineapple SHx: Unemployed, lives w/ parents. +PCP use, denies other drugs, denies etoh, smokes 1/2 ppd Current Medications: Active Medications Generic Name Dose Route Start Last Admin Trade Name Freq PRN Reason Stop Dose Admin Acetaminophen 650 mg 08/19/17 02:53 Tylenol 325mg Tab PO Q4 PRN Pain, moderate (4-7) Al Hydrox/Mg Hydrox/Simethicone 30 ml 08/19/17 02:53 Maalox Plus 30 Ml PO Q4 PRN Dyspepsia Aripiprazole 10 mg 08/19/17 11:15 Abilify PO DAILY MARCELO Diphenhydramine HCl 50 mg 08/19/17 02:53 Benadryl IM Q6 PRN Extrapyramidal S/S Unable PO Diphenhydramine HCl 50 mg 08/19/17 02:53 Benadryl PO Q6 PRN Extrapyramidal Symptoms Haloperidol 5 mg 08/19/17 02:53 Haldol PO Q4 PRN Agitation Haloperidol Lactate 5 mg 08/19/17 02:53 Haldol IM Q4 PRN Agitation, Unable to Take PO Lorazepam 2 mg 08/19/17 02:53 Ativan IM Q4 PRN Anxiety/Agitation,Unable PO Lorazepam 1 mg 08/19/17 02:53 Ativan PO Q6 PRN Anxiety/Agitation Magnesium Hydroxide 30 ml 08/19/17 02:53 Milk Of Magnesia PO HS PRN Constipation Nicotine 1 patch 08/19/17 11:15 Nicoderm Cq TD DAILY MARCELO Past Psychiatric History - Past Psychiatric History Previous Treatment History: Inpatient Pertinent Medical Hx (Current Medical&Sleep Prob, Allergies): Allergies Allergy/AdvReac Type Severity Reaction Status Date / Time pineapple Allergy ITCHING Verified 08/02/17 02:29 Benztropine [Cogentin] 1 mg PO BID #60 tab 08/07/17 Haloperidol [Haldol] 10 mg PO BID #60 tab 08/07/17 Hydroxyzine HCl 25 mg PO BID 30 Days #60 tablet 08/07/17 Forman Carbonate [Forman Carbonate 300MG] 600 mg PO DAILY #30 cap 08/07/17 Forman Carbonate [Forman Carbonate 300MG] 900 mg PO HS #30 cap 08/07/17 traZODone [Desyrel] 100 mg PO HS #30 tab 08/07/17 Review of Systems - Psychiatric Psychiatric: Abnormal Sleep Pattern, Anxiety, Auditory Hallucinations, Behavioral Changes, Change in Appetite, Depression, Difficulty Concentrating, Hallucinations, Irritability, Mood Swings, Paranoia Mental Status Examination - Personal Presentation Personal Presentation: Looks stated age - Affect Affect: Blunted - Motor Activity Motor Activity: Psychomotor Retardation - Reliability in Providing Information Reliability in Providing Information: Poor, due to alteration in thoughts - Speech Speech: Tangential, Coherent - Mood Mood: Depressed - Formal Thought Process Formal Thought Process: Hallucinations, Paranoia - Hallucinations/Delusions Additional comments: +AH, +Paranoia - Obsessions/Compulsions Obsessions: No Compulsions: No - Cognitive Functions Orientation: Person, Place, Situation, Time Sensorium: Alert Attention/Concentration: Easily distracted Estimate of Intelligence: Average Judgement: Imparied, as evidence by: Lack of insight into illness Memory: Recent impaired, as evidence by: Inability to recall events of the day, Recent imparied as evidence by:Inability to complete 3/3 object recall, Remote impaired as evidenced by: Inability to recall sig life events - Risk Risk: Diminished functioning - Strength & Assets Inventory Strength & Assets Inventory: Family support, Cooperative DSM 5 DX - DSM 5 DSM 5 Diagnosis: Bipolar Disorder w/ Psychotic Features; PCP Abuse - Recommended/Plan of Treatment Treatment Recommendations and Plan of Treatment: Bipolar Disorder w/ Psychotic Features; PCP Abuse -Admit to psychiatry unit -Individual and group therapy -Start Abilify 10 mg PO Daily -Nicotine patch -Medicine consult -Obtain collateral history -Disposition planning Projected ELOS: 5-10 days Discharge Plan and Discharge Criteria: Discharge when patient is psychiatrically stable - Smoking Cessation Smoking Cessation Initiated: Yes
[2017-08-19 12:30] LABS: ALBUMIN 3.5 g/dL (3.5-5.0); ALT/SGPT 30 U/L (9-52); AST/SGOT 36 U/L (14-36); BLOOD UREA NITROGEN 9 mg/dl (7-17); CALCIUM 9.2 mg/dL (8.4-10.2); GFR AFRICAN-AMERICAN > 60; GFR NON-AFRICAN AMERICAN > 60
--- NOTE | 2017-08-19 14:52 | CARD ---
APPROVED REPORT EKG Measurement Heart [id number] <Conclusion> Normal sinus rhythm Normal ECG
[2017-08-20] MEDS: Alum-Mag Hydrox-Simethicone Susp (30 mL) PO PRN ×2 (04:36→22:52)
[2017-08-20 07:49] LABS: HDL CHOLESTEROL 36 MG/DL (30-70)
[2017-08-20 08:00] LABS: LDL CHOLESTEROL 107 mg/dL (0-129)
[2017-08-20] MEDS: Risperidone M tab 1 MG PO SCH ×2 (13:00→17:25)
--- NOTE | 2017-08-20 15:22 | PCM.PYCHPN ---
Psychiatric Progress Note - Psychiatric Progress Note Patient seen today, length of contact: pt evaluated discussed with team chart breviewed Patient Chief Complaint: I want to get a place to live Problems Identified/Issues Discussed: pt on evaluation presenting with anxious mood and affect, thought process tangential, pressured speech, labile, and disorganized pt has no insight into her substance use, requesting housing , needs a lot of encouragement to comply with her medications pt denied any current suicidal or homicidal ideations, denied command hallucinations encouraged pt to attend groups DSM 5 Symptoms Update: pcp induced psychotic disorder bipolar disorder Medication Change: Yes (start risperidone) Medical Record Reviewed: Yes Mental Status Examination - Cognitive Function Orientation: Person, Place, Situation, Time Memory: Intact Attention: Poor Concentration: Poor Decription of patient's judgement and insights: imapired insight and poor judgement - Mood Mood: Depressed - Affect Affect: Blunted, Depressed - Speech Speech: Pressured - Formal Thought Process Formal Thought Process: Hallucinations, Paranoia, Circumstantial, Perservation Psychotic Thoughts and Behaviors: disorganized thought process Additional comments: pt denied any current perceptual disturbances, denied command hallucinations - Suicidal Ideation Suicidal Ideation: No - Homicidal Ideation Homicidal Ideation: No Goal/Treatment Plan - Goal/Treatment Plan Need for Continued Stay: Severe depression anxiety, Discharge may exacerbated symptoms Progress Toward Problem(s) and Goals/Treatment Plan: start risperidone 1mg bid encourage to attend groups monitor pt for psychopharmacological effects and side effect profile Estimated Date of D/C: 08/29/17
[2017-08-21] MEDS: Risperidone M tab 1 MG PO SCH (08:45)
[2017-08-21] MEDS ORDERED: Sodium Chloride 0.9% 1,000 ML IV SCH (17:30)
--- NOTE | 2017-08-21 17:35 | PCM.PYCHPN ---
Psychiatric Progress Note - Psychiatric Progress Note Patient seen today, length of contact: pt evaluated discussed with team chart breviewed Patient Chief Complaint: I feel tired all the time Problems Identified/Issues Discussed: pt on evaluation presenting with parkinson symptoms, slow sluggish movement, possibly due to PCP use repreat of CPK done noted to be 173, discontinue antipsychotic, gave pt benadryl IM , ativan Imand bromocriptine PO , for possible neuroleptic malignant syndrome, vitals noted to be stable consulted with hospitalist, odered repeat of renal functions and starting pt on iv FLUIDS pt at current mental status appears sedated, denied any current perceptual disturbances, denied suicidal or homicidal ideations Medication Change: Yes (discontinue risperidone) Medical Record Reviewed: Yes Mental Status Examination - Cognitive Function Orientation: Person, Place, Situation, Time Memory: Intact Attention: Poor Concentration: Poor Fund of Knowledge: Poor Decription of patient's judgement and insights: imapired insight and poor judgement - Mood Mood: Depressed - Affect Affect: Blunted, Depressed - Speech Speech: Slurred - Formal Thought Process Formal Thought Process: Hallucinations, Paranoia, Circumstantial, Perservation Psychotic Thoughts and Behaviors: disorganized thought process - Suicidal Ideation Suicidal Ideation: No - Homicidal Ideation Homicidal Ideation: No Goal/Treatment Plan - Goal/Treatment Plan Need for Continued Stay: Severe depression anxiety, Discharge may exacerbated symptoms Progress Toward Problem(s) and Goals/Treatment Plan: possible neuroleptic malignant syndrome discontinue antipsychotics start IV fluids as per hospitalist follow up on vital signs monitor pt for psychopharmacological effects and side effect profile Estimated Date of D/C: 08/29/17
[2017-08-21 18:33] LABS: BASO # 0.1 K/uL (0.0-0.2); BASO % 0.6 % (0.0-2.0); EOS # 0.1 K/uL (0.0-0.7); EOS % 0.9 % (0.0-4.0); HEMOGLOBIN 13.6 g/dL (12.0-16.0); LYMPH # 1.1 K/uL (1.0-4.3); MEAN CELL VOLUME 96.4 fl (81.0-99.0); MEAN CORPUSCULAR HEMOGLOBIN 32.3 pg (27.0-31.0); MEAN CORPUSCULAR HGB CONC 33.5 g/dL (33.0-37.0); MEAN PLATELET VOLUME 7.3 fl (7.2-11.7); MONO # 0.4 K/uL (0.0-0.8); MONO % 4.2 % (0.0-10.0); NEUT # 7.1 K/uL (1.8-7.0); NEUT % 81.3 % (50.0-75.0); RBC 4.21 Mil/uL (3.80-5.20); RED CELL DISTRIBUTION WIDTH 13.1 % (11.5-14.5); WHITE BLOOD COUNT 8.7 K/uL (4.8-10.8)
[2017-08-21] MEDS: Alum-Mag Hydrox-Simethicone Susp (30 mL) PO PRN (18:42)
[2017-08-21 18:43] LABS: HDL CHOLESTEROL 40 MG/DL (30-70)
[2017-08-21 18:53] LABS: ALBUMIN 4.1 g/dL (3.5-5.0); ALT/SGPT 37 U/L (9-52); AST/SGOT 34 U/L (14-36); BLOOD UREA NITROGEN 13 mg/dl (7-17); CALCIUM 9.8 mg/dL (8.4-10.2); GFR AFRICAN-AMERICAN > 60; GFR NON-AFRICAN AMERICAN > 60
[2017-08-21 18:59] LABS: LDL CHOLESTEROL 95 mg/dL (0-129)
[2017-08-22 07:10] LABS: T4 7.27 ug/dl (5.5-11.0)
[2017-08-22 07:21] LABS: T3 1.32 nmol/L (1.49-2.60)
--- NOTE | 2017-08-22 13:43 | PCM.PYCHPN ---
Psychiatric Progress Note - Psychiatric Progress Note Patient seen today, length of contact: pt evaluated discussed with team chart breviewed Patient Chief Complaint: I WANT TO GET BACK TO NORM[employer] AND GO TO WORK Problems Identified/Issues Discussed: pt evaluated with the treatment team, pt yesterday had early sign and symptoms of neuroleptic malignant syndrome, as discusssed with hospitalist Dr Granado possible due to PCP use and pending PCP metabolites in her body Pt presented with parkinson posture ,drooling , shuffling gate and cog wheel rigidity of the arm, IV fluids were given, pt CPK today is lower, 111, mental status appears less drowsy speech less slurred with better communication and more clear thought process, vitals at current time stable, pt continues to present with labile affect, denied any current suicidal or homicidalideations denied perceptual disturbances, limited insight into her substance use disorder DSM 5 Symptoms Update: pcp induced mood disorder pending neuroleptic malignant syndrome bipolar disorder mixed with psychotic features Medication Change: Yes (start abilify 2mg) Medical Record Reviewed: Yes Mental Status Examination - Cognitive Function Orientation: Person, Place, Situation, Time Memory: Intact Attention: Poor Concentration: Poor Fund of Knowledge: Poor Decription of patient's judgement and insights: imapired insight and poor judgement - Mood Mood: Depressed - Affect Affect: Depressed Additional comments: labile - Speech Speech: Slurred - Formal Thought Process Formal Thought Process: Hallucinations, Paranoia, Circumstantial, Perservation Psychotic Thoughts and Behaviors: disorganized thought process - Suicidal Ideation Suicidal Ideation: No - Homicidal Ideation Homicidal Ideation: No Goal/Treatment Plan - Goal/Treatment Plan Need for Continued Stay: Severe depression anxiety, Discharge may exacerbated symptoms Progress Toward Problem(s) and Goals/Treatment Plan: follow up on vital signs, monitor CPK level encourage oral fluid intake abilify 2mg with plan to uptitrate gradually monitor pt for psychopharmacological effects and side effect profile Estimated Date of D/C: 08/29/17
--- NOTE | 2017-08-23 13:59 | PCM.PYCHPN ---
Psychiatric Progress Note - Psychiatric Progress Note Patient seen today, length of contact: pt evaluated discussed with team chart breviewed Patient Chief Complaint: I am better I can even dance Problems Identified/Issues Discussed: pt evaluated, appears less sedated, less stiffness observed with improved mobility pt CPK today 90 no drooling and no cog wheel rigidity on examination pt continues to present with labile affect, thought process circumstantial with limited insight into illness, pt attending groups and receptive to treatment denied any current command halluciantions denied suicidal or homicidal ideations DSM 5 Symptoms Update: bipolar disorder pcp use disorder pcp induced neuroleptic malignant syndrome in remission Medication Change: Yes (startdepakote 250mg ) Medical Record Reviewed: Yes Mental Status Examination - Cognitive Function Orientation: Person, Place, Situation, Time Memory: Intact Attention: WNL Concentration: WNL Association: WNL Fund of Knowledge: Poor Decription of patient's judgement and insights: imapired insight and poor judgement - Mood Mood: Euphoric - Affect Affect: Broad - Speech Speech: Slurred - Formal Thought Process Formal Thought Process: Circumstantial, Perservation Psychotic Thoughts and Behaviors: pt thought process more clear, denied any current perceptual disturbances, non ellicited - Suicidal Ideation Suicidal Ideation: No - Homicidal Ideation Homicidal Ideation: No Goal/Treatment Plan - Goal/Treatment Plan Need for Continued Stay: Severe depression anxiety, Discharge may exacerbated symptoms Progress Toward Problem(s) and Goals/Treatment Plan: follow up on vital signs, monitor CPK level encourage oral fluid intake abilify 2mg with plan to uptitrate gradually, depakote 250mg qhs with plan to uptitrate monitor pt for psychopharmacological effects and side effect profile Estimated Date of D/C: 08/29/17
[2017-08-23] MEDS ORDERED: Pneumococcal 23-Valent Vaccine IM ONE (14:57)
[2017-08-23] MEDS ORDERED: Divalproex 500 mg DR(BID formulation) PO SCH (17:00)
[2017-08-23] MEDS: Divalproex 250 mg ER (ONCE DAILY formulation) PO SCH (21:11)
[2017-08-24] MEDS ORDERED: Pneumococcal 23-Valent Vaccine IM ONE (12:10)
--- NOTE | 2017-08-24 12:21 | PCM.PYCHPN ---
Psychiatric Progress Note - Psychiatric Progress Note Patient seen today, length of contact: pt evaluated discussed with team chart breviewed Patient Chief Complaint: I want to leave, I want to see my sister she is coming from [place] Problems Identified/Issues Discussed: pt evaluated, presenting with less sedation, more alert, responding to questions , seen attending the groups , movement normal at current time, no rigidity elicited, free range of movement in all limbs, no shuffling , posture better, drooling disappeared pt continues to present with very labile affect at time dancing and at times tearful reporting she wishes to be on the outside to see her sister who is coming from [place] to visit her, pt requested and consented to be tested for HIV mood also labile , circumstantial thought process at times laughing inappropriately, denied any current suicidal or homicidal ideations, denied command hallucinations discussed with pt uptitrating her depakote gradually, and starting [facility] outpatient on discharge DSM 5 Symptoms Update: bipolar disorder MRE mixed severe with psychotic features PCP induced psychotic disorder Medication Change: Yes (startdepakote 250mg ) Medical Record Reviewed: Yes Mental Status Examination - Cognitive Function Orientation: Person, Place, Situation, Time Memory: Intact Attention: WNL Concentration: Poor Association: WNL Fund of Knowledge: Poor Decription of patient's judgement and insights: imapired insight and poor judgement - Mood Mood: Euphoric - Affect Affect: Broad Additional comments: labile - Speech Speech: Pressured - Formal Thought Process Formal Thought Process: Circumstantial, Perservation Psychotic Thoughts and Behaviors: pt thought process more clear, denied any current perceptual disturbances, non ellicited - Suicidal Ideation Suicidal Ideation: No - Homicidal Ideation Homicidal Ideation: No Goal/Treatment Plan - Goal/Treatment Plan Need for Continued Stay: Severe depression anxiety, Discharge may exacerbated symptoms Progress Toward Problem(s) and Goals/Treatment Plan: follow up on vital signs, monitor CPK level encourage oral fluid intake abilify 2mg with plan to uptitrate gradually,increase depakote to 250mg TID with plan to uptitrate follow up on HIV results monitor pt for psychopharmacological effects and side effect profile Estimated Date of D/C: 08/29/17
[2017-08-24] MEDS: Divalproex 250 mg DR(BID formulation) PO SCH (12:22)
[2017-08-24] MEDS: Divalproex 250 mg ER (ONCE DAILY formulation) PO SCH (21:14)
[2017-08-25] MEDS: Divalproex 250 mg DR(BID formulation) PO SCH ×2 (08:32→17:30)
--- NOTE | 2017-08-25 13:47 | PCM.PYCHPN ---
Psychiatric Progress Note - Psychiatric Progress Note Patient seen today, length of contact: pt evaluated discussed with team chart breviewed Patient Chief Complaint: I am feeling better today Problems Identified/Issues Discussed: pt evaluated, better range of movement, speech clear, no current sedation, pt continues to present with labile affect,laughing inappropriately, concrete, circumstantial thought process ,limited insight into illness,pt denied any current suicidal or homicidal ideations denied perceptual disturbances DSM 5 Symptoms Update: bipolar disorder pcp induced mood disorder NMS in remission Medication Change: Yes (increase depakote) Medical Record Reviewed: Yes Mental Status Examination - Cognitive Function Orientation: Person, Place, Situation, Time Memory: Intact Attention: WNL Concentration: Poor Association: WNL Fund of Knowledge: Poor Decription of patient's judgement and insights: imapired insight and poor judgement - Mood Mood: Euphoric - Affect Affect: Broad - Speech Speech: Pressured - Formal Thought Process Formal Thought Process: Circumstantial, Perservation Psychotic Thoughts and Behaviors: pt thought process more clear, denied any current perceptual disturbances, non ellicited - Suicidal Ideation Suicidal Ideation: No - Homicidal Ideation Homicidal Ideation: No Goal/Treatment Plan - Goal/Treatment Plan Need for Continued Stay: Severe depression anxiety, Discharge may exacerbated symptoms Progress Toward Problem(s) and Goals/Treatment Plan: discontinue abilify increase depakote to 1000mg, follow up on depakote level in three days monitor pt for psychopharmacological effects and side effect profile Estimated Date of D/C: 08/29/17
[2017-08-25] MEDS ORDERED: Divalproex 500 mg DR(BID formulation) PO SCH (22:00)
[2017-08-26] MEDS: Divalproex 250 mg DR(BID formulation) PO SCH ×2 (09:25→17:27)
--- NOTE | 2017-08-26 10:30 | PCM.PYCHPN ---
Psychiatric Progress Note - Psychiatric Progress Note Patient seen today, length of contact: pt evaluated discussed with team chart breviewed Patient Chief Complaint: I am feeling better and I move better Problems Identified/Issues Discussed: pt evaluated, better range of movement, speech more clear, no current sedation, pt reported mood is better , affect less labile affect,speech more goal directedy, showing some insight into illness,and able to verbalize the negative effect of PCP on her mental health, pt denied any current suicidal or homicidal ideations denied perceptual disturbances DSM 5 Symptoms Update: bipolar disorder PCP use disorder Medication Change: Yes (increase depakote) Medical Record Reviewed: Yes Mental Status Examination - Cognitive Function Orientation: Person, Place, Situation, Time Memory: Intact Attention: WNL Concentration: Poor Association: WNL Fund of Knowledge: Poor Decription of patient's judgement and insights: imapired insight and poor judgement - Mood Mood: Euphoric - Affect Affect: Broad - Speech Speech: Pressured - Formal Thought Process Formal Thought Process: Circumstantial, Perservation Psychotic Thoughts and Behaviors: pt thought process more clear, denied any current perceptual disturbances, non ellicited - Suicidal Ideation Suicidal Ideation: No - Homicidal Ideation Homicidal Ideation: No Goal/Treatment Plan - Goal/Treatment Plan Need for Continued Stay: Severe depression anxiety, Discharge may exacerbated symptoms Progress Toward Problem(s) and Goals/Treatment Plan: HIV test noted to be non reactive increase depakote to 1200mg, follow up on depakote level monitor pt for psychopharmacological effects and side effect profile Estimated Date of D/C: 08/29/17
[2017-08-26] MEDS ORDERED: Divalproex 250 mg DR(BID formulation) PO SCH (22:00)
[2017-08-27 05:55] VITALS: BP 110/75; PULSE 81; RESP 18; TEMP 97.2
[2017-08-27] MEDS: Divalproex 250 mg DR(BID formulation) PO SCH (08:03)
--- NOTE | 2017-08-27 13:29 | PCM.PYCHDC ---
Mental Status Examination - Mental Status Examination Orientation: Person, Place, Situation, Time Memory: Intact Mood: Neutral Affect: Broad Speech: Appropriate Attention: WNL Concentration: WNL Association: WNL Fund of Knowledge: WNL Formal Thought Process: No Impairment Description of patient's judgement and insight: partial insight and fair judgement Psychotic Thoughts and Behaviors: pt thought process more clear, denied any current perceptual disturbances, non ellicited Suicidal Ideation: No Current Homicidal Ideation?: No Discharge Summary - Discharge Note Reason for Hospitalization: 32 yo female w/ h/o Bipolar disorder w/ psychotic features and multiple past psychiatric admissions, most recent at [facility] from 08/02/17/-08/07/17, presents acutely decompensated in the context of non-compliance with medications and PCP use. She reports feeling acutely depressed, anxious, w/ thought blocking and psychomotor delay. She is not agreeable to restarting her most recent medications (Cogentin, Haldol, Hydroxyzine, [place]) due to feeling that he is has slowed her down psychically and mentally. She is a poor historian at this time. She reports AH and current paranoia. NO SI/HI. Consultations:: List each consultation separately and include: 1. Reason for request. 2. Findings. 3. Follow-up Summary of Hospital Course include:: 1. Description of specific treatment plan utilized for patients during their course of treatmen. 2. Summarize the time- course for resolution of acute symptoms and/or regressed behaviors. 3. Describe issues identified and worked on during hospitalization. 4. Describe medication utilized. 5. Describe medical problems identified and treated. 6. Reassessment of suicide risk Summary of Hospital Course: pt on admission was disorganized and psychotic, she gradually developed symptoms of neuroleptic syndrome, with CPK elevated to 178 pt was given IV fluids, after consulting with hospitalist , also neuroleptics were discontinued till vitals were stable and CPK was down to 99 pt was started on depakote for mood stabilization and it was uptitrated to 1250mg daily pt on discharge had normal range of movement stable mood and affect, denied any current suicidal or homicidal ideations denied perceptual disturbances Motivational therapy was provided and pt was educated about risk of relapse and impact on mental status appt arranged for outpatient follow up at [facility] - Final Diagnosis (DSM 5) Condition upon Discharge: FAIR DSM 5: 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
== END 2017-08-27 14:30 | disposition home or self-care (01) | DRG 896 ==
LOC: H.ER 17:43 → H.ERHOLD 08-19 02:14 → H.STEP 08-19 04:00 → H.PSYCH 08-19 06:49 → H.STEP 08-21 20:39
PROVIDERS: ADMIT Psychiatry & Neurology Psychiatry; ATTEND Psychiatry & Neurology Psychiatry
PROC: GZHZZZZ Group Psychotherapy (ICD-10-PCS; 2017-08-20)
PROC: GZ51ZZZ Individual Psychotherapy, Behavioral (ICD-10-PCS; 2017-08-20)
PROC: 3E0234Z Introduction of Serum, Toxoid and Vaccine into Muscle, Percutaneous Approach (ICD-10-PCS; principal; 2017-08-24)
DX: F16.159 Hallucinogen abuse with hallucinogen-induced psychotic disorder, unspecified (principal); G21.0 Malignant neuroleptic syndrome; F31.60 Bipolar disorder, current episode mixed, unspecified; Z87.891 Personal history of nicotine dependence; Z91.14 Patient's other noncompliance with medication regimen; Z23 Encounter for immunization

== ENCOUNTER 2017-08-28 17:28 | Emergency (ER) | payer MEDICARE, OTHER ==
[2017-08-28 17:33] VITALS: BMI 31.3
[2017-08-28 17:41] VITALS: PULSE 111; RESP 20; TEMP 98.5; O2SAT 98
[2017-08-28 18:24] LABS: BASO # 0.1 K/uL (0.0-0.2); BASO % 0.9 % (0.0-2.0); EOS # 0.1 K/uL (0.0-0.7); EOS % 1.7 % (0.0-4.0); HEMOGLOBIN 13.2 g/dL (12.0-16.0); LYMPH # 1.5 K/uL (1.0-4.3); LYMPH % 20.1 % (20.0-40.0); MEAN CELL VOLUME 95.9 fl (81.0-99.0); MEAN CORPUSCULAR HEMOGLOBIN 32.1 pg (27.0-31.0); MEAN CORPUSCULAR HGB CONC 33.5 g/dL (33.0-37.0); MEAN PLATELET VOLUME 7.5 fl (7.2-11.7); MONO # 0.5 K/uL (0.0-0.8); MONO % 7.3 % (0.0-10.0); NEUT # 5.3 K/uL (1.8-7.0); RBC 4.12 Mil/uL (3.80-5.20); RED CELL DISTRIBUTION WIDTH 13.3 % (11.5-14.5); WHITE BLOOD COUNT 7.5 K/uL (4.8-10.8)
[2017-08-28 18:55] LABS: ALBUMIN 3.8 g/dL (3.5-5.0); ALT/SGPT 34 U/L (9-52); AST/SGOT 27 U/L (14-36); BLOOD UREA NITROGEN 14 mg/dl (7-17); CALCIUM 9.9 mg/dL (8.4-10.2); GFR AFRICAN-AMERICAN > 60; GFR NON-AFRICAN AMERICAN > 60
[2017-08-28 18:57] LABS: BARBITURATES, UR NEGATIVE (NEGATIVE); BENZODIAZEPINES, UR NEGATIVE (NEGATIVE); OPIATES, UR NEGATIVE (NEGATIVE); PHENCYCLIDINE, UR POSITIVE (NEGATIVE)
--- NOTE | 2017-08-28 19:10 | ED PDOC ---
HPI: Psych/Substance Abuse Time Seen by Provider: 08/28/17 17:41 Chief Complaint (Nursing): Substance Abuse Chief Complaint (Provider): substance abuse History Per: Patient, EMS History/Exam Limitations: no limitations Onset/Duration Of Symptoms: Days (today) Current Symptoms Are (Timing): Still Present Suicide/Self Injury Attempted (Context): None Associated Symptoms: denies: Suicidal Thoughts, Suicidal Plan Additional Complaint(s): Adrienne Velasco is a 32 year old female, with a past medical history of anxiety, depression, and bipolar disorder, who was brought to the emergency department via EMS for drug intoxication onset today. Per EMS, ambulance was called to patient's home for bizarre behavior. Patient admits to drinking alcohol but denies drug use. Patient does have a history of PCP abuse. She was discharged yesterday from the psych unit and states she hasn't started the medications prescribed to her for bipolar disorder. She denies any other medical complaints. PMD: None provided. Past Medical History Reviewed: Historical Data, Nursing Documentation, Vital Signs Vital Signs: Last Vital Signs Temp 98.5 F 08/28/17 17:36 Pulse 111 H 08/28/17 17:36 Resp 20 08/28/17 17:36 BP Pulse Ox 98 08/28/17 17:36 - Medical History PMH: Anxiety, Bipolar Disorder, Depression Denies: Diabetes, Hepatitis, HIV, HTN, Chronic Kidney Disease, Seizures, Sexually Transmitted Disease - Surgical History Surgical History: No Surg Hx - Family History Family History: States: Unknown Family Hx - Social History Current smoker - smoking cessation education provided: Yes (Heavy smoker >10 cigarettes daily) Alcohol: Social Drugs: Opiates - Immunization History Hx Tetanus Toxoid Vaccination: No Hx Influenza Vaccination: No Hx Pneumococcal Vaccination: No - Home Medications Home Medications: Ambulatory Orders Medication Instructions Recorded Benztropine [Cogentin] 0.5 mg PO HS 30 Days #30 tab 08/27/17 Divalproex [Depakote DR(*BID*)] 250 mg PO BID 30 Days #60 tcp 08/27/17 Divalproex [Depakote DR(*BID*)] 750 mg PO HS 30 Days #90 tcp 08/27/17 - Allergies Allergies/Adverse Reactions: Allergies Allergy/AdvReac Type Severity Reaction Status Date / Time pineapple Allergy ITCHING Verified 08/02/17 02:29 Review of Systems ROS Statement: Except As Marked, All Systems Reviewed And Found Negative ( denies everything but may be unreliable due to alcohol intoxication.) Physical Exam - Reviewed Nursing Documentation Reviewed: Yes Vital Signs Reviewed: Yes - Physical Exam Appears: Positive for: No Acute Distress Head Exam: Positive for: ATRAUMATIC, NORMOCEPHALIC Skin: Positive for: Warm, Dry Eye Exam: Positive for: EOMI, PERRL ENT: Positive for: Pharynx Is (clear) Neck: Positive for: Painless ROM, Supple Cardiovascular/Chest: Positive for: Regular Rate, Rhythm. Negative for: Murmur Respiratory: Positive for: Normal Breath Sounds. Negative for: Wheezing Gastrointestinal/Abdominal: Positive for: Soft. Negative for: Tenderness Back: Positive for: Normal Inspection. Negative for: Muscle Spasm Extremity: Positive for: Normal ROM. Negative for: Deformity Lymphatic: Negative for: Adenopathy Neurologic/Psych: Positive for: Alert (but slow to answer questions and somewhat forgetful. ), Oriented (x3), Gait (steady). Negative for: Motor/ Sensory Deficits, Aphasia - Laboratory Results Result Diagrams: 08/28/17 18:18 08/28/17 18:18 - ECG O2 Sat by Pulse Oximetry: 98 (RA) Pulse Ox Interpretation: Normal Medical Decision Making Medical Decision Making: Initial Impression: AMS likely drug and alcohol intoxication. Initial Plan: --Alcohol serum --CMP --Drug screen, urine --Magnesium --Phosphorus --Valproic acid --Urine --Urine dipstick --CBC w/ differential --Reevaluation UDS positive for PCP BAL negative Pt alert, oriented x 3 with no homicidal or suicidal ideation. Eager to be discharged. Scribe Attestation: Documented by Jovan Stone, acting as a scribe for Charo Eduardo MD. Provider Scribe Attestation: All medical record entries made by the Scribe were at my direction and personally dictated by me. I have reviewed the chart and agree that the record accurately reflects my personal performance of the history, physical exam, medical decision making, and the department course for this patient. I have also personally directed, reviewed, and agree with the discharge instructions and disposition. Disposition - Clinical Impression Clinical Impression: PCP (phencyclidine) abuse Counseled Patient/Family Regarding: Studies Performed, Diagnosis, Need For Followup - Disposition [facility]errals: [facility] Disposition: Routine/Home Disposition Time: 19:00 Condition: IMPROVED Additional Instructions: PLEASE STOP USING DRUGS START YOUR PSYCHIATRIC MEDICATIONS SOON POSSIBLE Instructions: Drug Abuse and Drug Addiction (DC)
== END 2017-08-28 19:40 | disposition home or self-care (01) ==
LOC: H.ER 17:28
DX: F16.10 Hallucinogen abuse, uncomplicated (principal); F31.9 Bipolar disorder, unspecified; F41.9 Anxiety disorder, unspecified; F17.210 Nicotine dependence, cigarettes, uncomplicated
CPT/HCPCS: 80053; 80164; 83735; 84100; 85025; 99281; G0480